=== PATIENT | male | born 1995 | race Two or more races ===

== ENCOUNTER 2021-03-01 09:00 | Emergency (ER) | payer SELFPAY ==
[~2021-03-01] VITALS: Ht 167.6 cm; Wt 68.0 kg
[2021-03-01 09:02] VITALS: BP 110/69
== END 2021-03-01 10:52 | disposition left against medical advice (07) ==
LOC: ER 09:00
DX: M54.6 Pain in thoracic spine (principal); Z53.21 Procedure and treatment not carried out due to patient leaving prior to being seen by health care provider